=== PATIENT | female | born 1975 | race Caucasian/White ===

== ENCOUNTER 2018-06-13 11:52 | Emergency (ER) | payer BC ==
--- OUTSIDE RECORDS SUMMARY | 2018-06-13 14:07 | XMS REPORT | Continuity of Care Document ---
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 Payers Type Date Identification Numbers Payment Provider Subscriber Policy Number: [id number] [place] Plan Claims Shira Rankin PayID: [id number] [address] [place] [address] Advance Directives Description No Information Available Problems Date Description Provider Status Onset: 10/05/2014 Allergic rhinitis Qamar Turcios MD Active Onset: 05/20/2015 Dermatographic urticaria Qamar Turcios MD Active Family History Date Family Member(s) Problem(s) Comments Father Diabetes Mellitus, II Mother Diabetes Mellitus, II Social History Type Date Description Comments Sex Unknown ETOH Use Denies alcohol use Tobacco Use Start: Unknown Patient has never smoked Smoking Status Reviewed: 11/27/17 Patient has never smoked Allergies, Adverse Reactions, Alerts Date Description Reaction Status Severity Comments 05/20/2015 sulfa Active 05/20/2015 Macrobid Active 05/20/2015 Macrodantin Active Medications Medication Date Status Form Strength Qnty SIG Indications Ordering Provider Azithromycin 06/12/ Active Tablets 250mg 6tabs 2 by mouth Elyn 2017 today, 1 by MD Tam mouth day 2 thru 5 Potassium 07/18/ Active Tablets ER 10Meq 180ta tab 1 by Elyn Chloride ER 2015 bs mouth twice MD Tam a day Magnesium / Active Capsules 780 1 by mouth Unknown 0000 twice a day Amoxicillin 04/15/ Hx Tablets 500mg 30tab 1 by mouth Qamar 2017 - s three times MD Tam 06/02/ a day 2018 Monistat 7 11/27/ Hx Cream 2% 15gm apply Elyn Simply Cure 2017 - vaginally MD Tam 03/31/ as directed 2017 Azithromycin 09/03/ Hx Tablets 500mg 6tabs Tab 1 PO Q Umeshyn 2018 - Day MD Tam 2017 Azithromycin 08/28/ Hx Tablets 500mg 1tabs Take one Yrn FRicci 2018 - pill today MD Jill 09/03/ and then 2017 complete course of treatment with 250mg pills already prescribed one a day starting Azithromycin 08/27/ Hx Tablets 250mg 6tabs 2 by mouth J01.90 Yrn F. 2018 - today, 1 by MD Jill 09/03/ mouth day 2 2017 thru 5 Amoxicillin 08/23/ Hx Capsules 500mg 30cap 1 by mouth Qamar 2017 - s three times MD Tam 08/28/ a day x 10 2017 days Silvadene 01/11/ Hx Cream 1% 20gm apply to Elyn 2016 - affected MD Tam 03/06/ area(s) 2016 once daily after cleaning Prednisone 11/05/ Hx Tablets 20mg 8tabs 2 by mouth J20.9 Yrn F. 2017 - every day MD Jill 2016 Azithromycin 11/05/ Hx Tablets 250mg 6tabs 2 by mouth J20.9 Qamar 2016 - today, 1 by MD Tam 03/06/ mouth day 2 2016 thru 5 Robitussin 11/05/ Hx Capsules 10-200mg 20cap 1 by mouth J20.9 Yrn F. Cough+Chest 2017 - s twice a day MD Jill Congestion DM 03/06/ as needed 2017 Proair HFA 11/05/ Hx Aerosol 108(90Bas 25.5g 2 puffs 4 x J20.9 Yrn F. 2017 - e) m daily prn MD Jill 03/06/ mcg/Act 2017 Zithromax Z-Ke 06/06/ Hx Tablets 250mg 6tabs take as Umsehyn 2016 - directed MD Tam 2015 Triamcinolone 11/28/ Hx Cream 0.025% 15gm Apply tid Elyn Acetonide 2015 - prn MD Tam 10/18/ Affected 2017 Areas Hydrocortisone 11/28/ Hx Cream 1% 15gm Apply tid Elyn Acetate 2015 - prn Rash MD Tam 2016 Amoxicillin 11/10/ Hx Capsules 500mg 30cap 1 by mouth Qamar 2014 - s three times MD Tam 05/20/ a day x 10 2014 days No Active 10/05/ Hx Elyn Medications 2014 - MD Tam 2014 Zyrtec Allergy / Hx Capsules 10mg 30cap 1 by mouth Elyn 0000 - s every day MD Tam 03/06/ as needed 2017 Magnesium / Hx Tablets 250mg 1 by mouth Unknown 0000 - twice a day 2017 Immunizations Description No Information Available Vital Signs Date Vital Result Comment 06/12/2018 10:37am BP Systolic 136 mmHg BP Diastolic 88 mmHg Heart Rate 81 /min Body Temperature 97.9 F Height 59 inches 4'11" Weight 151.00 lb BMI (Body Mass Index) 30.5 kg/m2 O2 % BldC Oximetry 97 % 06/02/2018 3:32pm BP Systolic 120 mmHg BP Diastolic 70 mmHg Heart Rate 84 /min Respiratory Rate 18 /min Height 59 inches 4'11" Weight 151.00 lb BMI (Body Mass Index) 30.5 kg/m2 O2 % BldC Oximetry 97 % 04/15/2018 4:00pm BP Systolic 118 mmHg BP Diastolic 70 mmHg Body Temperature 97.9 F Height 59 inches 4'11" 03/31/2018 2:44pm BP Systolic 126 mmHg BP Diastolic 80 mmHg Height 59 inches 4'11" Weight 150.00 lb BMI (Body Mass Index) 30.3 kg/m2 03/03/2018 12:57pm BP Systolic 118 mmHg BP Diastolic 80 mmHg Heart Rate 74 /min Respiratory Rate 18 /min Height 59 inches 4'11" Weight 152.00 lb BMI (Body Mass Index) 30.7 kg/m2 O2 % BldC Oximetry 98 % 11/27/2017 2:33pm BP Systolic 144 mmHg BP Diastolic 96 mmHg Height 59 inches 4'11" Weight 151.00 lb BMI (Body Mass Index) 30.5 kg/m2 09/03/2017 11:53am BP Systolic 120 mmHg BP Diastolic 60 mmHg Heart Rate 76 /min Body Temperature 98.2 F O2 % BldC Oximetry 97 % 08/27/2017 3:11pm BP Systolic 122 mmHg BP Diastolic 80 mmHg Heart Rate 92 /min Body Temperature 497965.0 F Respiratory Rate 80 /min 08/23/2017 2:35pm BP Systolic 120 mmHg BP Diastolic 68 mmHg Height 59 inches 4'11" Weight 150.00 lb BMI (Body Mass Index) 30.3 kg/m2 07/24/2017 1:07pm BP Systolic 130 mmHg BP Diastolic 76 mmHg Height 59 inches 4'11" Weight 150.00 lb BMI (Body Mass Index) 30.3 kg/m2 05/16/2017 3:59pm BP Systolic 112 mmHg BP Diastolic 78 mmHg 05/02/2017 12:20pm BP Systolic 132 mmHg BP Diastolic 78 mmHg Weight 149.00 lb 03/06/2017 12:40pm BP Systolic 118 mmHg BP Diastolic 76 mmHg Height 60 inches 5'0" Weight 150.00 lb BMI (Body Mass Index) 29.3 kg/m2 11/14/2016 12:47pm BP Systolic 110 mmHg BP Diastolic 66 mmHg Body Temperature 97.0 F 11/05/2016 11:07am BP Systolic 122 mmHg BP Diastolic 60 mmHg Body Temperature 99.0 F 10/18/2016 12:44pm BP Systolic 132 mmHg BP Diastolic 70 mmHg Height 59.5 inches 4'11.50" Weight 142.00 lb BMI (Body Mass Index) 28.2 kg/m2 07/18/2016 7:25pm BP Systolic 110 mmHg BP Diastolic 80 mmHg 06/06/2016 8:56am BP Systolic 110 mmHg BP Diastolic 70 mmHg 04/02/2016 12:26pm BP Systolic 104 mmHg BP Diastolic 60 mmHg Height 59.5 inches 4'11.50" Weight 134.00 lb BMI (Body Mass Index) 26.6 kg/m2 11/29/2015 8:38am BP Systolic 120 mmHg BP Diastolic 72 mmHg Height 59.5 inches 4'11.50" Weight 134.00 lb BMI (Body Mass Index) 26.6 kg/m2 09/06/2015 9:01am BP Systolic 140 mmHg BP Diastolic 80 mmHg Body Temperature 97.8 F Height 59.5 inches 4'11.50" Weight 129.00 lb BMI (Body Mass Index) 25.6 kg/m2 05/20/2015 10:23am BP Systolic 124 mmHg BP Diastolic 78 mmHg Height 59.5 inches 4'11.50" Weight 129.00 lb BMI (Body Mass Index) 25.6 kg/m2 11/10/2014 8:28pm BP Systolic 112 mmHg BP Diastolic 70 mmHg Height 59.5 inches 4'11.50" Weight 128.00 lb BMI (Body Mass Index) 25.4 kg/m2 10/05/2014 1:40pm BP Systolic 118 mmHg BP Diastolic 66 mmHg Height 59.5 inches 4'11.50" Weight 126.00 lb BMI (Body Mass Index) 25.0 kg/m2 Results Test Date Facility Test Result H/L Range Note CBS 04/11/2018 [facility] White Blood 6.2 K/uL 3.1 -10.7 W/Automated [address] Count Diff [place], [place] [id number] [phone] Red Blood Count 5.13 M/uL 3.90-5.40 Hemoglobin 14.9 gm/dL 11.6-15.8 Hematocrit 46.3 % High 36.0-46.1 Mean Cell Volume 90.3 fl 80.9-99.0 Mean Corpuscular HGB 29.0 pg 25.9-32.7 Mean Corpuscular HGB Conc 32.2 g/dL 30.8-34.3 Platelet Count 197 K/uL 155-360 Red Cell Distri Width SD 43.6 fl 3-47 Red Cell Distri Width %CV 13.6 % 11.7-14.4 Neut% 58.4 % 40.4-72.8 Lymph % 33.4 % 20.0-42.0 Letcher % 6.8 % 4.3-13.2 Eo% 1.1 % 0.0-6.6 Bas% 0.3 % 0.0-1.1 Neut# 3.60 K/uL 1.8-7.0 Lymph # 2.06 K/uL 1.0-4.0 Letcher # 0.42 K/uL 0.3-0.9 Eos # 0.07 K/uL 0.0-0.5 Baso # 0.02 K/uL 0.0-0.1 Laboratory test finding 04/11/2018 [facility] Slide Review . [address] [place], [place] [id number] [phone] Sedimentation Rate 18 mm/hr 0-20 2 Laboratory 04/11/2018 [facility] Anti-Nuclear Negative Negative 3, 4 test finding [address] Antibodies AU/[place] [address] Direct [phone] Liver Function 04/11/2018 [facility] Total Protein 7.9 g/dL 6.4-8.[address] [place], [place] [id number] [phone] Albumin 3.8 g/dL 3.4-5.0 Globulin 4.1 g/dL 1.9-4.3 Alb/Glob 0.9 ratio Bilirubin,Total 0.5 mg/dL 0.2-1.0 Bilirubin,Direct < 0.1 mg/dL 0.0-0.2 Bilirubin,Indirect 0.4 mg/dL 0.0-0.9 Sgot/Ast 22 U/L 15-37 SGPT/Alt 36 U/L 12-78 Alkaline Phosphatase 89 U/L 45-117 Comprehensive 04/11/2018 [facility] Glucose 103 mg/ dL 74-106 Metabolic Panel [address] [place] [address] [phone] BUN 15 mg/dL 7-18 Creatinine 0.9 mg/dL 0.6-1.3 Glom Filtration Rate, Estimate >60 mL/min >60 If >60 mL/min >60 5 BUN/Creat 16.6 ratio Sodium 139 mmol/L 136-145 Potassium 4.0 mmol/L 3.5-5.1 Chloride 103 mmol/L 98-107 Carbon Dioxide 27 mmol/L 21-32 Anion Gap 9 mEq/L 8-16 Calcium 9.2 mg/dL 8.5-10.1 Laboratory test 04/11/2018 [facility] Magnesium 2.1 mg/dL 1.8-2.[address] [place] [address] [phone] LDL Cholesterol 04/11/2018 [facility] Cholesterol 183 mg/dL <200 [address] [place] [address] [phone] Triglycerides 141 mg/dL <150 7 HDL Cholesterol 39 mg/dL Low >40 8 LDL-Cholesterol 116 mg/dL < 100 9 Glycohemoglobin 04/11/2018 [facility] Glycohemoglobin 5.9 % 4.2-6.3 10, A1c [address] (A1c) 11 [place] [address] [phone] eAG 123 mg/dL Comprehensive 11/21/2017 [facility] Glucose 106 mg/ dL 74-106 Metabolic Panel [address] [place] [address] [phone] BUN 14 mg/dL 7-18 Creatinine 0.7 mg/dL 0.6-1.3 Glom Filtration Rate, Estimate >60 mL/min >60 If >60 mL/min >60 12 BUN/Creat 20.0 ratio Sodium 139 mmol/L 136-145 Potassium 3.7 mmol/L 3.5-5.1 Chloride 106 mmol/L 98-107 Carbon Dioxide 29 mmol/L 21-32 Anion Gap 4 mEq/L Low 8-16 Calcium 9.1 mg/dL 8.5-10.1 Total Protein 7.9 g/dL 6.4-8.2 Albumin 3.7 g/dL 3.4-5.0 Globulin 4.2 g/dL 1.9-4.3 Alb/Glob 0.9 ratio Bilirubin,Total 0.4 mg/dL 0.2-1.0 Sgot/Ast 22 U/L 15-37 SGPT/Alt 51 U/L 12-78 Alkaline Phosphatase 88 U/L 45-117 Laboratory test finding 11/21/2017 [facility] FSH 94.6 mIU/mL [address] [place], [place] [id number] [phone] Prolactin 14.0 ng/mL 14 Laboratory test 04/05/2017 [facility] Vitamin B12 661 pg/mL 193-986 [address] [place], [place] [id number] [phone] Rheumatoid Factor Screen < 10.0 IU/mL 0.0-15.0 Magnesium 2.1 mg/dL 1.8-2.4 Laboratory 04/05/2017 [facility] Anti-Nuclear Negative Negative 16 test finding [address] Antibodies AU/[place] [address] Direct [phone] Laboratory 04/05/2017 [facility] Cortisol,Am 13.2 g /dL 6.2-19.4 17 test finding [address] [place], [place] [id number] [phone] CBC W/ Diff & 04/05/2017 [facility] White Blood 6.4 K /uL 3.1-10.[address] [place] [address] [phone] Red Blood Count 5.29 M/uL 3.90-5.40 Hemoglobin 15.7 gm/dL 11.6-15.8 Hematocrit 46.5 % High 36.0-46.1 Mean Cell Volume 87.9 fl 80.9-99.0 Mean Corpuscular HGB 29.7 pg 25.9-32.7 Mean Corpuscular HGB Conc 33.8 g/dL 30.8-34.3 Platelet Count 174 K/uL 150-400 Red Cell Distri Width SD 43.2 fl 3-47 Red Cell Distri Width %CV 13.6 % 11.7-14.4 Mean Platelet Volume 11.5 fL 8.9-12.4 Neut% 57.6 % 40.4-72.8 Lymph % 35.0 % 20.0-42.0 Letcher % 6.3 % 4.3-13.2 Eo% 0.8 % 0.0-6.6 Bas% 0.3 % 0.0-1.1 Neut# 3.69 K/uL 1.8-7.0 Lymph # 2.24 K/uL 1.0-4.0 Letcher # 0.40 K/uL 0.3-0.9 Eos # 0.05 K/uL 0.0-0.5 Baso # 0.02 K/uL 0.0-0.1 Laboratory test 04/05/2017 [facility] Sedimentation Rate 1 mm/hr 0-20 [address] [place], [place] [id number] [phone] Basic Metabolic 04/05/2017 [facility] Glucose 98 mg/ dL 74-[address] [place], [place] [id number] [phone] BUN 15 mg/dL 7-18 Creatinine 0.7 mg/dL 0.6-1.3 Glom Filtration Rate, Estimate >60 mL/min >60 If >60 mL/min >60 19 BUN/Creat 21.4 ratio Sodium 138 mmol/L 136-145 Potassium 3.7 mmol/L 3.5-5.1 Chloride 104 mmol/L 98-107 Carbon Dioxide 25 mmol/L 21-32 Anion Gap 9 mEq/L 8-16 Calcium 9.2 mg/dL 8.5-10.1 LDL Cholesterol 04/05/2017 [facility] Cholesterol 222 mg/dL High <200 [address] [place] [address] [phone] Triglycerides 175 mg/dL High <150 21 HDL Cholesterol 44 mg/dL >40 22 LDL-Cholesterol 143 mg/dL < 100 23 TSH+Free T4 04/05/2017 [facility] Thyroid Stim 0.85 uIU/mL 0.30-4.20 ([place] & [address] Hormone [facility]) [place], [place] [id number] [phone] Free T4 0.99 ng/dL 0.76-1.46 Liver Function 04/05/2017 [facility] Total Protein 8.0 g/dL 6.4-8.[address] [place] [address] [phone] Albumin 3.8 g/dL 3.4-5.0 Globulin 4.2 g/dL 1.9-4.3 Alb/Glob 0.9 ratio Bilirubin,Total 0.5 mg/dL 0.2-1.0 Bilirubin,Direct 0.1 mg/dL 0.0-0.2 Bilirubin,Indirect 0.4 mg/dL 0.0-0.9 Sgot/Ast 45 U/L High 15-37 SGPT/Alt 92 U/L High 12-78 Alkaline Phosphatase 96 U/L 45-117 Basic Metabolic 10/11/2016 [facility] Glucose 95 mg/ dL 74-106 [address] [place] [address] [phone] BUN 15 mg/dL 7-18 Creatinine 0.7 mg/dL 0.6-1.3 Glom Filtration Rate, Estimate >60 mL/min >60 If >60 mL/min >60 25 BUN/Creat 21.4 ratio Sodium 140 mmol/L 136-145 Potassium 3.9 mmol/L 3.5-5.1 Chloride 105 mmol/L 98-107 Carbon Dioxide 24 mmol/L 21-32 Anion Gap 11 mEq/L 8-16 Calcium 9.0 mg/dL 8.5-10.1 Laboratory test 10/11/2016 [facility] Magnesium 2.1 mg/dL 1.8-2.[address] [place] [address] [phone] Basic Metabolic 07/03/2016 [facility] Glucose 99 mg/ dL 74-106 [address] [place] [address] [phone] BUN 18 mg/dL 7-18 Creatinine 0.9 mg/dL 0.6-1.3 Glom Filtration Rate, Estimate >60 mL/min >60 If >60 mL/min >60 27 BUN/Creat 20.0 ratio Sodium 139 mmol/L 136-145 Potassium 3.5 mmol/L 3.5-5.1 Chloride 104 mmol/L 98-107 Carbon Dioxide 28 mmol/L 21-32 Anion Gap 7 mEq/L Low 8-16 Calcium 8.7 mg/dL 8.5-10.1 Laboratory test 07/03/2016 [facility] Magnesium 2.1 mg/dL 1.8-2.[address] [place] [address] [phone] CBS W/Automated 07/03/2016 [facility] White Blood 5.8 K/uL 3.1-10.[address] [place] [address] [phone] Red Blood Count 5.01 M/uL 3.90-5.40 Hemoglobin 14.8 gm/dL 11.6-15.8 Hematocrit 44.1 % 36.0-46.1 Mean Cell Volume 88.0 fl 80.9-99.0 Mean Corpuscular HGB 29.5 pg 25.9-32.7 Mean Corpuscular HGB Conc 33.6 g/dL 30.8-34.3 Platelet Count 181 K/uL 155-360 Red Cell Distri Width SD 39.8 fl 3-47 Red Cell Distri Width %CV 12.7 % 11.7-14.4 Mean Platelet Volume 10.8 fL 8.9-12.4 Neut% 54.0 % 40.4-72.8 Lymph % 35.8 % 17.0-46.1 Letcher % 8.5 % 4.3-13.2 Eo% 1.4 % 0.0-6.6 Bas% 0.3 % 0.0-1.1 Neut# 3.12 K/uL 1.8-7.0 Lymph # 2.07 K/uL 1.8-7.0 Letcher # 0.49 K/uL 0.3-0.9 Eos # 0.08 K/uL 0.0-0.5 Baso # 0.02 K/uL 0.0-0.1 Comprehensive Metabolic 07/03/2016 [facility] Glucose 93 mg/dL 74-[address] [place] [address] [phone] BUN 18 mg/dL 7-18 Creatinine 0.9 mg/dL 0.6-1.3 Glom Filtration Rate, Estimate >60 mL/min >60 If >60 mL/min >60 28 BUN/Creat 20.0 ratio Sodium 138 mmol/L 136-145 Potassium 3.4 mmol/L Low 3.5-5.1 Chloride 103 mmol/L 98-107 Carbon Dioxide 28 mmol/L 21-32 Anion Gap 7 mEq/L Low 8-16 Calcium 8.5 mg/dL 8.5-10.1 Total Protein 7.5 g/dL 6.4-8.2 Albumin 3.7 g/dL 3.4-5.0 Globulin 3.8 g/dL 1.9-4.3 Alb/Glob 1.0 ratio Bilirubin,Total 0.6 mg/dL 0.2-1.0 Sgot/Ast 31 U/L 15-37 SGPT/Alt 62 U/L 12-78 Alkaline Phosphatase 84 U/L 45-117 LDL Cholesterol 07/03/2016 [facility] Cholesterol 197 mg/dL <200 [address] [place] [address] [phone] Triglycerides 72 mg/dL <150 30 HDL Cholesterol 51 mg/dL >40 31 LDL-Cholesterol 132 mg/dL < 100 32 Laboratory test 07/03/2016 [facility] Thyroid Stim 0.84 uIU/mL 0.30-4.[address] [place] [place] [address] [phone] Free T4 1.15 ng/dL 0.76-1.46 Laboratory test 07/03/2016 [facility] Vitamin 40.0 30.0-100.0 [address] D,25-Hydroxy ng/[place] [address] [phone] Basic Metabolic 03/16/2016 [facility] Glucose 95 mg/ dL 74-[address] [place] [address] [phone] BUN 11 mg/dL 7-18 Creatinine 0.9 mg/dL 0.6-1.3 Glom Filtration Rate, Estimate >60 mL/min >60 If >60 mL/min >60 34 BUN/Creat 12.2 ratio Sodium 139 mmol/L 136-145 Potassium 3.7 mmol/L 3.5-5.1 Chloride 107 mmol/L 98-107 Carbon Dioxide 25 mmol/L 21-32 Anion Gap 7 mEq/L Low 8-16 Calcium 8.8 mg/dL 8.5-10.1 Laboratory test 03/16/2016 [facility] Magnesium 1.9 mg/dL 1.8-2.4 [address] [place] [address] [phone] Comprehensive 11/21/2015 [facility] Glucose 93 mg/dL 74-106 Metabolic Panel [address] [place] [address] [phone] BUN 15 mg/dL 7-18 Creatinine 0.8 mg/dL 0.6-1.3 Glom Filtration Rate, Estimate >60 mL/min >60 If >60 mL/min >60 36 BUN/Creat 18.7 ratio Sodium 138 mmol/L 136-145 Potassium 3.3 mmol/L Low 3.5-5.1 Chloride 104 mmol/L 98-107 Carbon Dioxide 28 mmol/L 21-32 Anion Gap 6 mEq/L Low 8-16 Calcium 8.6 mg/dL 8.5-10.1 Total Protein 7.8 g/dL 6.4-8.2 Albumin 3.7 g/dL 3.4-5.0 Globulin 4.1 g/dL 1.9-4.3 Alb/Glob 0.9 ratio Bilirubin,Total 0.5 mg/dL 0.2-1.0 Sgot/Ast 28 U/L 15-37 SGPT/Alt 64 U/L 12-78 Alkaline Phosphatase 77 U/L 45-117 CBC W/Automated 11/21/2015 [facility] White Blood 5.4 K/uL 3.1-10.[address] [place] [address] [phone] Red Blood Count 4.71 M/uL 3.90-5.40 Hemoglobin 14.0 gm/dL 11.6-15.8 Hematocrit 42.1 % 36.0-46.1 Mean Cell Volume 89.4 fl 80.9-99.0 Mean Corpuscular HGB 29.7 pg 25.9-32.7 Mean Corpuscular HGB Conc 33.3 g/dL 30.8-34.3 Platelet Count 183 K/uL 155-360 Red Cell Distri Width SD 40.3 fl 3-47 Red Cell Distri Width %CV 12.7 % 11.7-14.4 Mean Platelet Volume 11.3 fL 8.9-12.4 Neut% 55.2 % 40.4-72.8 Lymph % 36.6 % 17.0-46.1 Letcher % 6.9 % 4.3-13.2 Eo% 0.9 % 0.0-6.6 Bas% 0.4 % 0.0-1.1 Neut# 2.97 K/uL 1.8-7.0 Lymph # 1.97 K/uL 1.8-7.0 Letcher # 0.37 K/uL 0.3-0.9 Eos # 0.05 K/uL 0.0-0.5 Baso # 0.02 K/uL 0.0-0.1 LDL Cholesterol 11/21/2015 [facility] Cholesterol 184 mg/dL <200 [address] [place] [address] [phone] Triglycerides 86 mg/dL <150 38 HDL Cholesterol 47 mg/dL >40 39 LDL-Cholesterol 120 mg/dL < 100 40 Laboratory test 11/21/2015 [facility] Vitamin 35.2 30.0-100.0 [address] D,25-Hydroxy ng/[place] [address] [phone] Laboratory test 11/21/2015 [facility] Thyroid Stim 0.78 0.36-3.[address] Hormone uIU/[place] [address] [phone] Free T4 1.00 ng/dL 0.76-1.46 Laboratory test 04/25/2015 [facility] Urine Screen See Note [address] [place] [address] [phone] Urinalysis With 04/25/2015 [facility] Urine Color YELLOW Yellow Microscopic [address] [place] [address] [phone] Urine Clarity CLEAR Clear Urine Glucose - Dipstick NEGATIVE mg/dL Negative Urine Bilirubin - Dipstick NEGATIVE Negative Urine Ketone NEGATIVE mg/dL Negative Urine Specific [place] 1.010 1.010-1.030 Urine Blood LARGE High Negative Urine PH 7.0 6.5-7.5 Urine Protein - Dipstick TRACE mg/dL Negative Urine Urobilinogen - Dipstick 0.2 E.U./dL 0.2-1.0 Urine Nitrite - Dipstick NEGATIVE Negative Urine Leuk Esterase SMALL High Negative Urine RBC 30-50 rbc/hpf High 0-2 Urine WBC 10-20 wbc/hpf High 0-7 Urine Epithelial Cells VERY FEW NONESEEN/lpf Urine Bacteria FEW NONESEEN Laboratory test 04/25/2015 [facility] Urine HCG NEGATIVE Negative [address] (Qualitative) [place] [address] [phone] Culture If Indicated Comment See Note 44 Urine Culture See Note 45 CMP W/O Egfr 10/15/2014 [facility] Sodium 136 mmol/L [phone] [place] [address] [phone] Potassium 3.9 mmol/L 3.5-5.0 Chloride 102 mmol/L 101-111 Co2 Carbon Dioxide 27 mmol/L 22-32 Anion Gap 7 mmol/L 2-11 Glucose 93 mg/dL 70-100 Blood Urea Nitrogen 11 mg/dL 6-24 Creatinine 0.79 mg/dL 0.51-0.95 BUN/Creatinine Ratio 13.9 8-20 Calcium 9.2 mg/dL 8.6-10.3 Total Protein 7.2 g/dL 6.4-8.9 Albumin 4.4 g/dL 3.2-5.2 Globulin 2.8 g/dL 2-4 Albumin/Globulin Ratio 1.6 1-3 Total Bilirubin 0.60 mg/dL 0.2-1.0 Alkaline Phosphatase 55 U/L 34-104 Alt 16 U/L 7-52 Ast 14 U/L 13-39 Egfr Non- 80.2 >60 Egfr 103.1 >60 46 CBC W/ Diff & 10/15/2014 [facility] White Blood 5.6 10^3/uL 4.8-10.[address] [place] [address] [phone] Red Blood Count 4.78 10^6/uL 4.0-5.4 Hemoglobin 14.7 g/dL 12.0-16.0 Hematocrit 44 % 35-47 Mean Corpuscular Volume 91 fL 80-97 Mean Corpuscular Hemoglobin 31 pg 27-31 Mean Corpuscular HGB Conc 34 g/dL 31-36 Red Cell Distribution Width 13 % 10.5-15 Platelet Count (SEE NOTE) 10^3/uL 150-450 47 Abs Neutrophils 3.3 10^3/uL 1.5-7.7 Abs Lymphocytes 1.9 10^3/uL 1.0-4.8 Abs Monocytes 0.3 10^3/uL 0-0.8 Abs Eosinophils 0 10^3/uL 0-0.6 Abs Basophils 0 10^3/uL 0-0.2 Abs Nucleated RBC 0 10^3/uL Granulocyte % 59.3 % 38-83 Lymphocyte % 33.6 % 25-47 Monocyte % 5.6 % 1-9 Eosinophil % 0.8 % 0-6 Basophil % 0.7 % 0-2 Nucleated Red Blood Cells % 0.1 Lipid Panel 10/15/2014 [facility] Triglycerides 130 mg/dL [address] [place] [address] [phone] Cholesterol 157 mg/dL 49 HDL Cholesterol 32.9 mg/dL 50 LDL Cholesterol 98 mg/dL 51 Hepatic 10/15/2014 [facility] Direct 0.10 mg/dL 0.03-0.18 Function Panel [address] [place] [place] [address] [phone] Indirect Bilirubin 0.5 mg/dL 0.3-1.0 Laboratory test 10/15/2014 [facility] Creatine 39 U/L 10-[address] [place] [address] [phone] [facility] 10/15/2014 [facility] 25-Hydroxy <4.0 25-Hydroxy D [address] Vitamin D2 ng/mL (D2,D3) LC/[place] [address] [phone] 25-Hydroxy Vitamin D3 30 ng/mL 25-Hydroxy Vitamin D Total 30 ng/mL 52 Laboratory test 10/15/2014 [facility] TSH (Thyroid 0.79 0.34- 5.[address] Stimulating IU/[place] [address] Horm) [phone] Thyroxine Free 10/15/2014 [facility] Free T4 0.98 0.61-1.[address] ng/[place] [address] [phone] Laboratory test 10/15/2014 [facility] Vitamin B12 767 pg/mL [phone] [place], [place] [id number] [phone] 1 Instrument flagged sample for slide review. Less than 10% Bands seen, no other immature WBC's seen. RBC morphology essentially normal. Platelet estimate=NORMAL 2 Method: Sediplast Modified Westergren 3 E87.6 E78.5 R60.9 R53.83 4 Performed at: RN - [facility] [address] [id number] Concreting Supervisor: Sammie Carpenter MD, Phone: [phone] Note: Persistent reduction for 3 months or more in an eGFR <60 mL/min/1.73 m2 defines CKD. Patients with eGFR values >/=60 mL/min/1.73 m2 may also have CKD if evidence of persistent proteinuria is present. The original MDRD equation for estimated GFR is not valid for patients less than 18 years of age. Additional information may be found at www.kdoqi.org. 6 Reference Guidelines*: Desirable: ........... < 200 mg/dL Borderline High: ..... 200-239 mg/dL High: ................ >=240 mg/dL * The National Cholesterol Education Program (NCEP) 7 Reference Guidelines*: Normal: ............. < 150 mg/dL Borderline High: .... 150-199 mg/dL High: ............... 200-499 mg/dL Very High: .......... > 500 mg/dL * Source: National Cholesterol Education Program (NCEP) 8 Reference Guidelines*: Low HDL: ..... < 40 mg/dL Normal: ..... 40-60 mg/dL Desirable: ... > 60 mg/dL *The National Cholesterol Education Program(NCEP) 9 Reference Guidelines*: Optimal:........... <100 mg/dL Near Optimal....... 100-129 mg/dL Borderline High.... 130-159 mg/dL High............... 160-189 mg/dL Very High.......... >=190 mg/dL * Source: National Cholesterol Education Program (NCEP) 10 E87.6 11 Elevated levels of HbA1c suggest the need for more aggressive treatment of glycemia. The [place] [employer] recommends that a primary goal of therapy should be a HbA1c of <7% and that physicians should re-evaluate the treatment regimen in patients with HbA1c values consistently >8%. 12 Note: Persistent reduction for 3 months or more in an eGFR <60 mL/min/1.73 m2 defines CKD. Patients with eGFR values >/=60 mL/min/1.73 m2 may also have CKD if evidence of persistent proteinuria is present. The original MDRD equation for estimated GFR is not valid for patients less than 18 years of age. Additional information may be found at www.[email or web address]. 13 NORMALLY MENSTRUATING FEMALES: Follicular Phase:............... 2.3-12.6 mIU/mL Mid-Cycle Peak:................. 5.2-17.5 mIU/mL Luteal Phase:................... 1.7-9.5 mIU/mL POSTMENOPAUSAL FEMALES: On menopausal hormone therapy (MHT)... 5.9-72.8 mIU/mL Not on MHT ........................... 12.7-132.2 mIU/mL 14 Non- ..... 2.2-30.3 ng/mL ......... 8.1-347.6 ng/mL Post-Menopausal .. 0.7-31.5 ng/mL 15 R94.5 E78.2 J20.9 R53.83 E87.6 E83.42 16 Performed at: RN - [facility] [address] [id number] Concreting Supervisor: Sammie Carpenter MD, Phone: [phone] 17 Performed at: RN - [facility] [address] [id number] Concreting Supervisor: Sammie Carpenter MD, Phone: [phone] 18 Method: Sediplast Modified Westergren 19 Note: Persistent reduction for 3 months or more in an eGFR <60 mL/min/1.73 m2 defines CKD. Patients with eGFR values >/=60 mL/min/1.73 m2 may also have CKD if evidence of persistent proteinuria is present. The original MDRD equation for estimated GFR is not valid for patients less than 18 years of age. Additional information may be found at www.[email or web address]. 20 Reference Guidelines*: Desirable: ........... < 200 mg/dL Borderline High: ..... 200-239 mg/dL High: ................ >=240 mg/dL * The National Cholesterol Education Program (NCEP) 21 Reference Guidelines*: Normal: ............. < 150 mg/dL Borderline High: .... 150-199 mg/dL High: ............... 200-499 mg/dL Very High: .......... > 500 mg/dL * Source: National Cholesterol Education Program (NCEP) 22 Reference Guidelines*: Low HDL: ..... < 40 mg/dL Normal: ..... 40-60 mg/dL Desirable: ... > 60 mg/dL *The National Cholesterol Education Program(NCEP) 23 Reference Guidelines*: Optimal:........... <100 mg/dL Near Optimal....... 100-129 mg/dL Borderline High.... 130-159 mg/dL High............... 160-189 mg/dL Very High.......... >=190 mg/dL * Source: National Cholesterol Education Program (NCEP) 24 E87.6,E83.42 25 Note: Persistent reduction for 3 months or more in an eGFR <60 mL/min/1.73 m2 defines CKD. Patients with eGFR values >/=60 mL/min/1.73 m2 may also have CKD if evidence of persistent proteinuria is present. The original MDRD equation for estimated GFR is not valid for patients less than 18 years of age. Additional information may be found at www.[email or web address]. 26 E87.6,E83.42,R94.5,E78.5,J02.9,E03.9,M81.8 27 Note: Persistent reduction for 3 months or more in an eGFR <60 mL/min/1.73 m2 defines CKD. Patients with eGFR values >/=60 mL/min/1.73 m2 may also have CKD if evidence of persistent proteinuria is present. The original MDRD equation for estimated GFR is not valid for patients less than 18 years of age. Additional information may be found at www.[email or web address]. 28 Note: Persistent reduction for 3 months or more in an eGFR <60 mL/min/1.73 m2 defines CKD. Patients with eGFR values >/=60 mL/min/1.73 m2 may also have CKD if evidence of persistent proteinuria is present. The original MDRD equation for estimated GFR is not valid for patients less than 18 years of age. Additional information may be found at www.[email or web address]. 29 Reference Guidelines*: Desirable: ........... < 200 mg/dL Borderline High: ..... 200-239 mg/dL High: ................ >=240 mg/dL * The National Cholesterol Education Program (NCEP) 30 Reference Guidelines*: Normal: ............. < 150 mg/dL Borderline High: .... 150-199 mg/dL High: ............... 200-499 mg/dL Very High: .......... > 500 mg/dL * Source: National Cholesterol Education Program (NCEP) 31 Reference Guidelines*: Low HDL: ..... < 40 mg/dL Normal: ..... 40-60 mg/dL Desirable: ... > 60 mg/dL *The National Cholesterol Education Program(NCEP) 32 Reference Guidelines*: Optimal:........... <100 mg/dL Near Optimal....... 100-129 mg/dL Borderline High.... 130-159 mg/dL High............... 160-189 mg/dL Very High.......... >=190 mg/dL * Source: National Cholesterol Education Program (NCEP) 33 Vitamin D deficiency has been defined by the Fisher of Medicine and an Endocrine Society practice guideline as a level of serum 25-OH vitamin D less than 20 ng/mL (1,2). The Endocrine Society went on to further define vitamin D insufficiency as a level between 21 and 29 ng/mL (2). 1. IOM (Fisher of Medicine). 2010. Dietary reference intakes for calcium and D. [place]: The National Academies Press. 2. Jay MF, [place], Judith SANCHEZ, et al. Evaluation, treatment, and prevention of vitamin D deficiency: an Endocrine Society clinical practice guideline. JCEM. 2010; 96(7):1911-30. Performed at: RN - [facility] [address], [place], [place] [id number] Concreting Supervisor: Sammie Carpenter MD, Phone: [phone] 34 Note: Persistent reduction for 3 months or more in an eGFR <60 mL/min/1.73 m2 defines CKD. Patients with eGFR values >/=60 mL/min/1.73 m2 may also have CKD if evidence of persistent proteinuria is present. The original MDRD equation for estimated GFR is not valid for patients less than 18 years of age. Additional information may be found at www.[email or web address]. 35 FAX TO LUBA HIGHTOWER AT [phone] 36 Note: Persistent reduction for 3 months or more in an eGFR <60 mL/min/1.73 m2 defines CKD. Patients with eGFR values >/=60 mL/min/1.73 m2 may also have CKD if evidence of persistent proteinuria is present. The original MDRD equation for estimated GFR is not valid for patients less than 18 years of age. Additional information may be found at www.[email or web address]. 37 Reference Guidelines*: Desirable: ........... < 200 mg/dL Borderline High: ..... 200-239 mg/dL High: ................ >=240 mg/dL * The National Cholesterol Education Program (NCEP) 38 Reference Guidelines*: Normal: ............. < 150 mg/dL Borderline High: .... 150-199 mg/dL High: ............... 200-499 mg/dL Very High: .......... > 500 mg/dL * Source: National Cholesterol Education Program (NCEP) 39 Reference Guidelines*: Low HDL: ..... < 40 mg/dL Normal: ..... 40-60 mg/dL Desirable: ... > 60 mg/dL *The National Cholesterol Education Program(NCEP) 40 Reference Guidelines*: Optimal:........... <100 mg/dL Near Optimal....... 100-129 mg/dL Borderline High.... 130-159 mg/dL High............... 160-189 mg/dL Very High.......... >=190 mg/dL * Source: National Cholesterol Education Program (NCEP) 41 Vitamin D deficiency has been defined by the Fisher of Medicine and an Endocrine Society practice guideline as a level of serum 25-OH vitamin D less than 20 ng/mL (1,2). The Endocrine Society went on to further define vitamin D insufficiency as a level between 21 and 29 ng/mL (2). 1. IOM (Fisher of Medicine). 2010. Dietary reference intakes for calcium and D. [place]: The National Academies Press. 2. Jay MF, [place], Judith SANCHEZ, et al. Evaluation, treatment, and prevention of vitamin D deficiency: an Endocrine Society clinical practice guideline. JCEM. 2010; 96(7):1911-30. Performed at: RN - [facility] [address] [id number] Concreting Supervisor: Sammie Carpenter MD, Phone: [phone] 42 04/25/15 LAB.[email or web address] De[facility] FIRST MORNING SPECIMENS GENERALLY CONTAIN THE HIGHEST CONCENTRATION OF HCG AND ARE RECOMMENDED FOR EARLY DETECTION OF . 44 CULTURE TO FOLLOW 45 Organism 1 ! ESCHERICHIA COLI Quantity ! 50,000 - 100,000 CFU/mL Organism 2 ! URETHRAL IMAN Quantity ! 10,000 - 50,000 CFU/mL ESCHERICHIA COLI Target Route Dose M.I.C. RX AB COST ------ ----- -------- ------ -- ------ NITROFURANTOIN <=16 S TRIMETHOPRIM/SULFAMETHOXAZOLE <=20 S AMPICILLIN >=32 R CEFAZOLIN 8 S AMPICILLIN/SULBACTAM >=32 R CIPROFLOXACIN <=0.25 S PIPERACILLIN/TAZOBACTAM 8 S CEFTAZIDIME <=1 S CEFTRIAXONE <=1 S CEFEPIME <=1 S LEVOFLOXACIN <=0.12 S IMIPENEM <=0.25 S GENTAMICIN <=1 S TOBRAMYCIN <=1 S 46 Because ethnic data is not always readily available, this report includes an eGFR for both -Americans and non- Americans. The National Kidney Disease Education Program (NKDEP) does not endorse the use of the MDRD equation for patients that are not between the ages of 18 and 70, are , have extremes of body size, muscle mass, or nutritional status, or are non- or non-. According to the National Kidney Foundation, irrespective of diagnosis, the stage of the disease is based on the level of kidney function: Stage Description GFR(mL/min/1.73 m(2)) 1 Kidney damage with normal or decreased GFR 90 2 Kidney damage with mild decrease in GFR 60-89 3 Moderate decrease in GFR 30-59 4 Severe decrease in GFR 15-29 5 Kidney failure <15 (or dialysis) 47 Platelets clumped. Unable to perform accurate count. 48 Desirable <150 Borderline high 150-199 High 200-499 Very High >500 49 Desirable <200 Borderline high 200-239 High >239 50 Low <40 Desirable: 40-60 High: >60 51 Desirable: <100 mg/dL Near Optimal: 100-129 mg/dL Borderline High: 130-159 mg/dL High: 160-189 mg/dL Very High: >189 mg/dL 52 REFERENCE VALUE 25-HYDROXY D TOTAL (D2+D3) Optimum levels in the healthy population are 20-50, patients with bone disease may benefit from higher levels within this range. Test Performed by: [place] [address] Ambulance Assistant: Benji Song II, M.D., Ph.D. 53 Normal Range 180 to 914 Indeterminate Range 145 to 180 Deficient Range <145 Procedures Date Code Description Status 03/03/2018 63750 Duplex Scan Extremity Veins Complete Bilateral Completed 06/20/2017 20547 EKG-Tracing & Report Completed 08/12/2013 [id number] Mammogram Completed Encounters Type Date Location Provider Dx Diagnosis Office Visit 06/12/2018 11:15a Main Office Qamar Turcios MD H66.91 Otitis media, unspecified, right ear M54.31 Sciatica, right side E87.6 Hypokalemia Office Visit 06/02/2018 3:30p Main Office Deonna Melchor, M54.31 Sciatica, right M.D. side S92.414A Nondisp fx of proximal phalanx of right great toe, init Office Visit 04/15/2018 4:00p Main Office Qamar Turcios MD J02.9 Acute pharyngitis, unspecified E87.6 Hypokalemia R10.11 Right upper quadrant pain E78.5 Hyperlipidemia, unspecified Office Visit 03/31/2018 2:30p Main Office Qamar Turcios MD E87.6 Hypokalemia R10.11 Right upper quadrant pain E83.42 Hypomagnesemia Office Visit 03/03/2018 1:00p Main Office Qamar Turcios MD E87.6 Hypokalemia E78.5 Hyperlipidemia, unspecified R60.9 Edema, unspecified Office Visit 11/27/2017 2:30p Main Office Qamar Turcios MD E78.5 Hyperlipidemia, unspecified E87.6 Hypokalemia Office Visit 09/03/2017 11:00a Main Office Qamar Turcios MD J20.9 Acute bronchitis, unspecified H66.91 Otitis media, unspecified, right ear Office Visit 08/27/2017 3:10p Main Office Yrn Melchor J01.90 Acute sinusitis, unspecified Office Visit 08/23/2017 2:15p Main Office Qamar Turcios MD J02.9 Acute pharyngitis, unspecified H66.92 Otitis media, unspecified, left ear Office Visit 07/24/2017 1:15p Main Office Qamra Turcios MD E78.5 Hyperlipidemia, unspecified M54.5 Low back pain E87.6 Hypokalemia R10.11 Right upper quadrant pain Office Visit 05/16/2017 3:45p Main Office Qamar Turcios MD M54.5 Low back pain E87.6 Hypokalemia R53.83 Other fatigue Office Visit 05/02/2017 11:45a Main Office Qamar Turcios MD M54.5 Low back pain Office Visit 03/06/2017 12:30p Main Office Qamar Turcios MD E87.6 Hypokalemia E83.42 Hypomagnesemia R53.83 Other fatigue M25.50 Pain in unspecified joint Office Visit 11/14/2016 12:45p Main Office Qamar Turcios MD J20.9 Acute bronchitis, unspecified J45.998 Other asthma E87.6 Hypokalemia E83.42 Hypomagnesemia R53.83 Other fatigue Office Visit 11/05/2016 10:50a Main Office Yrn Melchor J20.9 Acute bronchitis, unspecified J45.998 Other asthma Office Visit 10/18/2016 12:30p Main Office Qamar Turcios MD E87.6 Hypokalemia E83.42 Hypomagnesemia J30.9 Allergic rhinitis, unspecified Office Visit 06/06/2016 8:15a Main Office Qamar Turcios MD E87.6 Hypokalemia E83.42 Hypomagnesemia J30.9 Allergic rhinitis, unspecified J01.90 Acute sinusitis, unspecified Office Visit 04/02/2016 12:15p Main Office Qamar Turcios MD R10.9 Unspecified abdominal pain E87.6 Hypokalemia E83.42 Hypomagnesemia Office Visit 11/29/2015 8:15a Main Office Qamar Turcios MD J30.9 Allergic rhinitis, unspecified E87.6 Hypokalemia Z00.01 Encounter for general adult medical exam w abnormal findings Office Visit 09/06/2015 9:00a Main Office Qamar Turcios MD R10.9 Unspecified abdominal pain Office Visit 05/20/2015 10:15a Main Office Qamar Turcios MD L50.3 Dermatographic urticaria R94.5 Abnormal results of liver function studies Office Visit 11/10/2014 7:00p Main Office Qamar Turcios MD 462 Pharyngitis Acute 477.9 Rhinitis Allergic Cause Unspec V72.2 Examination Dental V72.0 Examination Eyes & Vision V70.0 Examination General Medical Routine AT [facility] 593.9 Kidney & Ureter Disorders Unspec GENERAL General Office Visit 10/05/2014 1:30p Main Office Qamar Turcios MD 477.9 Rhinitis Allergic Cause Unspec 794.8 Liver Study Abnormal 388.30 Tinnitus Unspecified GENERAL General Plan of Treatment Future Appointment(s):07/17/2018 8:15 am - Nurse at Main Hohstj9107/23/2018 10: 15 am - Qamar Turcios MD at Main Eikvyc0406/12/2018 - Qamar Turcios MDH66.91 Otitis media, unspecified, right earM54.31 Sciatica, right sideE87.6 HypokalemiaAllNew Medication:Azithromycin 250 mg - 2 by mouth today, 1 by mouth day 2 thru 5New Therapy:Evaluate And TreatComments:for above dx:-REFER PT RIGHT FOOT TINGLING, SCIATICA?-ZPAC ORDERED-RTO SCHEDULED [facility] HAVE GIVEN HER A SCRIPT FOR LABS TO BE DRAWN BY [facility] NEXT WEEK TO COVER THAT HER REQUEST
--- OUTSIDE RECORDS SUMMARY | 2018-06-13 14:07 | XMS REPORT | Continuity of Care Document ---
:1975 External Reference #:[id number] Author Name Qamar Turcios MD Address [address] [place] [address] Care Team Providers Name Role Phone Qamar Turcios MD Care Team Information [employer] Unavailable Payers Type Date Identification Numbers Payment Provider Subscriber Policy Number: [id number] [place] Plan Claims Shira Rankin PayID: [id number] [place] [address] Advance Directives Description No Information Available Problems [...] Active Tablets 250mg 6tabs 2 by mouth Eljody 2018 today, 1 by MD Tam mouth day 2 thru 5 Potassium 07/18/ Active Tablets ER 10Meq 180ta tab 1 by Elyn Chloride ER 2015 bs mouth twice MD Tam a day Magnesium / Active Capsules 780 1 by mouth Unknown 0000 twice a day Amoxicillin 04/15/ Hx Tablets 500mg 30tab 1 by mouth Qamar 2018 - s three times MD Tam 06/02/ a day 2018 Monistat 7 11/27/ Hx Cream 2% 15gm apply Eljody Simply Cure 2017 - vaginally MD Tam 03/31/ as directed 2017 Azithromycin 09/03/ Hx Tablets 500mg 6tabs Tab 1 PO Q Qamar 2017 - Day MD Tam 2017 Azithromycin 08/28/ Hx Tablets 500mg 1tabs Take one Yrn FRicci 2017 - pill today MD Jill 09/03/ and then 2017 complete course of treatment with 250mg pills already prescribed one a day starting Azithromycin 08/27/ Hx Tablets 250mg 6tabs 2 by mouth J01.90 Yrn F. 2017 - today, 1 by MD Jill 09/03/ mouth day 2 2017 thru 5 Amoxicillin 08/23/ Hx Capsules 500mg 30cap 1 by mouth Qamar 2017 - s three times MD Tam 08/28/ a day x 10 2017 days Silvadene 01/11/ Hx Cream 1% 20gm apply to Umeshyn 2016 - affected MD Tam 03/06/ area(s) [...] m daily prn MD Jill 03/06/ mcg/Act 2016 Zithromax Z-Ke 06/06/ Hx Tablets 250mg 6tabs take as Umeshyn 2015 - directed MD Tam 2015 Triamcinolone 11/28/ Hx Cream 0.025% 15gm Apply tid Elyn Acetonide 2015 - prn MD Tma 10/18/ Affected 2017 Areas Hydrocortisone 11/28/ Hx Cream 1% 15gm Apply tid Elyn Acetate 2015 - prn Rash MD Tam 2016 Amoxicillin 11/10/ Hx Capsules 500mg 30cap 1 by mouth Qamar 2014 - s three times MD Tam 05/20/ a day x 10 2014 days No Active 02/24/ Hx Elyn Medications 2014 - MD Tam 2014 Zyrtec Allergy / Hx Capsules 10mg 30cap 1 by mouth Elyn 0000 - s every day MD Tam 03/06/ as needed 2016 Magnesium / Hx Tablets 250mg 1 by [...] mmHg Heart Rate 92 /min Body Temperature 321620.0 F Respiratory Rate 80 /min 08/23/2017 2:35pm [...] Test Result H/L Range Note CBS 04/11/2018 [facility] White Blood 6.2 K/uL 3.1 -10.7 W/Automated [address] Count Diff [place], [place] [id number] [phone] Red Blood Count 5.13 M/uL 3.90-5.40 Hemoglobin [...] % 40.4-72.8 Lymph % 33.4 % 20.0-42.0 [place] % 6.8 % 4.3-13.2 Eo% 1.1 % 0.0-6.6 Bas% 0.3 % 0.0-1.1 Neut# 3.60 K/uL 1.8-7.0 Lymph # 2.06 K/uL 1.0-4.0 [place] # 0.42 K/uL 0.3-0.9 Eos # 0.07 K/uL 0.0-0.5 Baso # 0.02 K/uL 0.0-0.1 Laboratory test finding 04/11/2018 [facility] Slide Review . [address] [place], [place] [id number] [phone] Sedimentation Rate 18 mm/hr 0-20 2 Laboratory 04/11/2018 [facility] Anti-Nuclear Negative Negative 3, 4 test finding [address] Antibodies AU/[place] [address] Direct [phone] Liver Function 04/11/2018 [facility] Total Protein 7.9 g/dL 6.4-8.[address] [place] [address] [phone] Albumin 3.8 g/dL 3.4-5.0 Globulin 4.1 g/dL 1.9-4.3 Alb/Glob 0.9 ratio Bilirubin,Total 0.5 mg/dL 0.2-1.0 Bilirubin,Direct < 0.1 mg/dL 0.0-0.2 Bilirubin,Indirect 0.4 mg/dL 0.0-0.9 Sgot/Ast 22 U/L 15-37 SGPT/Alt 36 U/L 12-78 Alkaline Phosphatase 89 U/L 45-117 Comprehensive 04/11/2018 [facility] Glucose 103 mg/ dL 74-106 Metabolic Panel [address] [place] [address] [phone] BUN 15 mg/dL 7-18 Creatinine 0.9 mg/dL 0.6-1.3 Glom Filtration Rate, Estimate >60 mL/min >60 If >60 mL/min >60 5 BUN/Creat 16.6 ratio Sodium 139 mmol/L 136-145 Potassium 4.0 mmol/L 3.5-5.1 Chloride 103 mmol/L 98-107 Carbon Dioxide 27 mmol/L 21-32 Anion Gap 9 mEq/L 8-16 Calcium 9.2 mg/dL 8.5-10.1 Laboratory test 04/11/2018 [facility] Magnesium 2.1 mg/dL 1.8-2.[address] [place] [address] [phone] LDL Cholesterol 04/11/2018 [facility] Cholesterol 183 mg/dL <200 [address] [place] [address] [phone] Triglycerides 141 mg/dL <150 7 HDL Cholesterol 39 mg/dL Low >40 8 LDL-Cholesterol 116 mg/dL < 100 9 Glycohemoglobin 04/11/2018 [facility] Glycohemoglobin 5.9 % 4.2-6.3 10, A1c [address] (A1c) 11 [place] [address] [phone] eAG 123 mg/dL Comprehensive 11/21/2017 [facility] Glucose 106 mg/ dL 74-106 Metabolic Panel [address] [place], [place] [address] [phone] BUN 14 mg/dL 7-18 Creatinine 0.7 mg/dL [...] 88 U/L 45-117 Laboratory test finding 11/21/2017 [facility] FSH 94.6 mIU/mL [address] [place], [place] [address] [phone] Prolactin 14.0 ng/mL 14 Laboratory test 04/05/2017 [facility] Vitamin B12 661 pg/mL 193-986 [address] [place] [address] [phone] Rheumatoid Factor Screen < 10.0 IU/mL 0.0-15.0 Magnesium 2.1 mg/dL 1.8-2.4 Laboratory 04/05/2017 [facility] Anti-Nuclear Negative Negative 16 test finding [address] Antibodies AU/[place] [address] Direct [phone] Laboratory 04/05/2017 [facility] Cortisol,Am 13.2 g /dL 6.2-19.4 17 test finding [address] [place], [place] [address] [phone] CBC W/ Diff & 04/05/2017 [facility] White Blood 6.4 K /uL 3.1-10.[address] Count [place], [place] [address] [phone] Red Blood Count 5.29 M/uL 3.90-5.40 Hemoglobin [...] % 40.4-72.8 Lymph % 35.0 % 20.0-42.0 [place] % 6.3 % 4.3-13.2 Eo% 0.8 % 0.0-6.6 Bas% 0.3 % 0.0-1.1 Neut# 3.69 K/uL 1.8-7.0 Lymph # 2.24 K/uL 1.0-4.0 [place] # 0.40 K/uL 0.3-0.9 Eos # 0.05 K/uL 0.0-0.5 Baso # 0.02 K/uL 0.0-0.1 Laboratory test 04/05/2017 [facility] Sedimentation Rate 1 mm/hr 0-20 [address] [place] [address] [phone] Basic Metabolic 04/05/2017 [facility] Glucose 98 mg/ dL 74-[address] [place], [place] [id number] [phone] BUN 15 mg/dL 7-18 Creatinine 0.7 mg/dL 0.6-1.3 Glom Filtration Rate, Estimate >60 mL/min >60 If >60 mL/min >60 19 BUN/Creat 21.4 ratio Sodium 138 mmol/L 136-145 Potassium 3.7 mmol/L 3.5-5.1 Chloride 104 mmol/L 98-107 Carbon Dioxide 25 mmol/L 21-32 Anion Gap 9 mEq/L 8-16 Calcium 9.2 mg/dL 8.5-10.1 LDL Cholesterol 04/05/2017 [facility] Cholesterol 222 mg/dL High <200 [address] [place] [address] [phone] Triglycerides 175 mg/dL High <150 21 HDL Cholesterol 44 mg/dL >40 22 LDL-Cholesterol 143 mg/dL < 100 23 TSH+Free T4 04/05/2017 [facility] Thyroid Stim 0.85 uIU/mL 0.30-4.20 ([place] & [address] Hormone [facility] [place] [place] [address] [phone] Free T4 0.99 ng/dL 0.76-1.46 Liver Function 04/05/2017 [facility] Total Protein 8.0 g/dL 6.4-8.[address] [place] [address] [phone] Albumin 3.8 g/dL 3.4-5.0 Globulin 4.2 g/dL 1.9-4.3 Alb/Glob 0.9 ratio Bilirubin,Total 0.5 mg/dL 0.2-1.0 Bilirubin,Direct 0.1 mg/dL 0.0-0.2 Bilirubin,Indirect 0.4 mg/dL 0.0-0.9 Sgot/Ast 45 U/L High 15-37 SGPT/Alt 92 U/L High 12-78 Alkaline Phosphatase 96 U/L 45-117 Basic Metabolic 10/11/2016 [facility] Glucose 95 mg/ dL 74-106 [address] [place] [address] [phone] BUN 15 mg/dL 7-18 Creatinine 0.7 mg/dL 0.6-1.3 Glom Filtration Rate, Estimate >60 mL/min >60 If >60 mL/min >60 25 BUN/Creat 21.4 ratio Sodium 140 mmol/L 136-145 Potassium 3.9 mmol/L 3.5-5.1 Chloride 105 mmol/L 98-107 Carbon Dioxide 24 mmol/L 21-32 Anion Gap 11 mEq/L 8-16 Calcium 9.0 mg/dL 8.5-10.1 Laboratory test 10/11/2016 [facility] Magnesium 2.1 mg/dL 1.8-2.[address] [place], [place] [id number] [phone] Basic Metabolic 07/03/2016 [facility] Glucose 99 mg/ dL 74-106 [address] [place] [address] [phone] BUN 18 mg/dL 7-18 Creatinine 0.9 mg/dL 0.6-1.3 Glom Filtration Rate, Estimate >60 mL/min >60 If >60 mL/min >60 27 BUN/Creat 20.0 ratio Sodium 139 mmol/L 136-145 Potassium 3.5 mmol/L 3.5-5.1 Chloride 104 mmol/L 98-107 Carbon Dioxide 28 mmol/L 21-32 Anion Gap 7 mEq/L Low 8-16 Calcium 8.7 mg/dL 8.5-10.1 Laboratory test 07/03/2016 [facility] Magnesium 2.1 mg/dL 1.8-2.[address] [place] [address] [phone] CBS W/Automated 07/03/2016 [facility] White Blood 5.8 K/uL 3.1-10.[address] [place] [address] [phone] Red Blood Count 5.01 M/uL 3.90-5.40 Hemoglobin [...] % 40.4-72.8 Lymph % 35.8 % 17.0-46.1 [place] % 8.5 % 4.3-13.2 Eo% 1.4 % 0.0-6.6 Bas% 0.3 % 0.0-1.1 Neut# 3.12 K/uL 1.8-7.0 Lymph # 2.07 K/uL 1.8-7.0 [place] # 0.49 K/uL 0.3-0.9 Eos # 0.08 K/uL 0.0-0.5 Baso # 0.02 K/uL 0.0-0.1 Comprehensive Metabolic 07/03/2016 [facility] Glucose 93 mg/dL 74-[address] [place] [address] [phone] BUN 18 mg/dL 7-18 Creatinine 0.9 mg/dL [...] Phosphatase 84 U/L 45-117 LDL Cholesterol 07/03/2016 [facility] Cholesterol 197 mg/dL <200 [address] [place] [address] [phone] Triglycerides 72 mg/dL <150 30 HDL Cholesterol 51 mg/dL >40 31 LDL-Cholesterol 132 mg/dL < 100 32 Laboratory test 07/03/2016 [facility] Thyroid Stim 0.84 uIU/mL 0.30-4.[address] [place] [address] [phone] Free T4 1.15 ng/dL 0.76-1.46 Laboratory test 07/03/2016 [facility] Vitamin 40.0 30.0-100.0 [address] D,25-Hydroxy ng/[place] [address] [phone] Basic Metabolic 03/16/2016 [facility] Glucose 95 mg/ dL 74-[address] [place] [address] [phone] BUN 11 mg/dL 7-18 Creatinine 0.9 mg/dL 0.6-1.3 Glom Filtration Rate, Estimate >60 mL/min >60 If >60 mL/min >60 34 BUN/Creat 12.2 ratio Sodium 139 mmol/L 136-145 Potassium 3.7 mmol/L 3.5-5.1 Chloride 107 mmol/L 98-107 Carbon Dioxide 25 mmol/L 21-32 Anion Gap 7 mEq/L Low 8-16 Calcium 8.8 mg/dL 8.5-10.1 Laboratory test 03/16/2016 [facility] Magnesium 1.9 mg/dL 1.8-2.4 [address] [place] [address] [phone] Comprehensive 11/21/2015 [facility] Glucose 93 mg/dL 74-106 Metabolic Panel [address] [place] [address] [phone] BUN 15 mg/dL 7-18 Creatinine 0.8 mg/dL [...] Phosphatase 77 U/L 45-117 CBC W/Automated 11/21/2015 [facility] White Blood 5.4 K/uL 3.1-10.[address] [place] [address] [phone] Red Blood Count 4.71 M/uL 3.90-5.40 Hemoglobin [...] % 40.4-72.8 Lymph % 36.6 % 17.0-46.1 [place] % 6.9 % 4.3-13.2 Eo% 0.9 % 0.0-6.6 Bas% 0.4 % 0.0-1.1 Neut# 2.97 K/uL 1.8-7.0 Lymph # 1.97 K/uL 1.8-7.0 [place] # 0.37 K/uL 0.3-0.9 Eos # 0.05 K/uL 0.0-0.5 Baso # 0.02 K/uL 0.0-0.1 LDL Cholesterol 11/21/2015 [facility] Cholesterol 184 mg/dL <200 [address] [place] [address] [phone] Triglycerides 86 mg/dL <150 38 HDL Cholesterol 47 mg/dL >40 39 LDL-Cholesterol 120 mg/dL < 100 40 Laboratory test 11/21/2015 [facility] Vitamin 35.2 30.0-100.0 [address] D,25-Hydroxy ng/[place] [address] [phone] Laboratory test 11/21/2015 [facility] Thyroid Stim 0.78 0.36-3.[address] Hormone uIU/[place] [address] [phone] Free T4 1.00 ng/dL 0.76-1.46 Laboratory test 04/25/2015 [facility] Urine Screen See Note [address] [place] [address] [phone] Urinalysis With 04/25/2015 [facility] Urine Color YELLOW Yellow Microscopic [address] [place] [address] [phone] Urine Clarity CLEAR Clear Urine Glucose - Dipstick NEGATIVE mg/dL Negative Urine Bilirubin - Dipstick NEGATIVE Negative Urine Ketone NEGATIVE mg/dL Negative Urine Specific [place] 1.010 1.010-1.030 Urine Blood LARGE High Negative Urine PH 7.0 6.5-7.5 Urine Protein - Dipstick TRACE mg/dL Negative Urine Urobilinogen - Dipstick 0.2 E.U./dL 0.2-1.0 Urine Nitrite - Dipstick NEGATIVE Negative Urine Leuk Esterase SMALL High Negative Urine RBC 30-50 rbc/hpf High 0-2 Urine WBC 10-20 wbc/hpf High 0-7 Urine Epithelial Cells VERY FEW NONESEEN/lpf Urine Bacteria FEW NONESEEN Laboratory test 04/25/2015 [facility] Urine HCG NEGATIVE Negative [address] (Qualitative) [place] [address] [phone] Culture If Indicated Comment See Note 44 Urine Culture See Note 45 CMP W/O Egfr 10/15/2014 [facility] Sodium 136 mmol/L [phone] [place] [address] [phone] Potassium 3.9 mmol/L 3.5-5.0 Chloride 102 mmol/L [...] >60 46 CBC W/ Diff & 10/15/2014 [facility] White Blood 5.6 10^3/uL 4.8-10.[address] [place] [address] [phone] Red Blood Count 4.78 10^6/uL 4.0-5.4 Hemoglobin [...] Blood Cells % 0.1 Lipid Panel 10/15/2014 [facility] Triglycerides 130 mg/dL [address] [place] [address] [phone] Cholesterol 157 mg/dL 49 HDL Cholesterol 32.9 mg/dL 50 LDL Cholesterol 98 mg/dL 51 Hepatic 10/15/2014 [facility] Direct 0.10 mg/dL 0.03-0.18 Function Panel [address] [place] [address] [phone] Indirect Bilirubin 0.5 mg/dL 0.3-1.0 Laboratory test 10/15/2014 [facility] Creatine 39 U/L 10-[address] [place] [address] [phone] [employer] 10/15/2014 [employer] 25-Hydroxy <4.0 25-Hydroxy D [address] Vitamin D2 ng/mL (D2,D3) LC/[place] [address] [phone] 25-Hydroxy Vitamin D3 30 ng/mL 25-Hydroxy Vitamin D Total 30 ng/mL 52 Laboratory test 10/15/2014 [facility] TSH (Thyroid 0.79 0.34- 5.[address] Stimulating IU/[place] [address] Horm) [phone] Thyroxine Free 10/15/2014 [employer] [facility] T4 0.98 0.61-1.[address] ng/[place] [address] [phone] Laboratory test 10/15/2014 [employer] Vitamin B12 767 pg/mL 180-914 [address] [place] [address] [phone] 1 Instrument flagged sample for slide review. Less than 10% Bands seen, no other immature WBC's seen. RBC morphology essentially normal. Platelet estimate=NORMAL 2 Method: Sediplast Modified [place]estergren 3 E87.6 E78.5 R60.9 R53.83 4 Performed at: RN - [facility] [address] [id number] Home Child Care Provider: Sammie Carpenter MD, Phone: [phone] Note: Persistent reduction for 3 months [...] for more aggressive treatment of glycemia. The [place] Diabetes Association recommends that a primary goal [...] J20.9 R53.83 E87.6 E83.42 16 Performed at: [facility] [id number] Home Child Care Provider: Sammie Carpenter MD, Phone: [phone] Performed at: [facility] [id number] Home Child Care Provider: Sammie Carpenter MD, Phone: [phone] Method: Sediplast Modified Westergren 19 Note: [...] D deficiency has been defined by the [place] of [employer] and an Endocrine Society practice guideline as a level of serum 25-OH vitamin D less than 20 ng/mL (1,2). The Endocrine Society went on to further define vitamin D insufficiency as a level between 21 and 29 ng/mL (2). 1. IOM ([place] [employer]). 2010. Dietary reference intakes for calcium and D. [place]: The National Academies Press. 2. Jay MF, [place], Judith SANCHEZ, et al. Evaluation, treatment, and prevention of vitamin D deficiency: an Endocrine Society clinical practice guideline. JCEM. 2010; 96(7):1911-30. Performed at: RN - [facility] [address] [id number] Home Child Care Provider: Sammie Carpenter MD, Phone: [phone] Note: Persistent reduction for 3 months [...] found at www.kdoqi.org. 35 FAX TO LUBA KATJA AT [phone] Note: Persistent reduction for 3 months [...] D deficiency has been defined by the [place] [employer] and an Endocrine Society practice guideline as a level of serum 25-OH vitamin D less than 20 ng/mL (1,2). The Endocrine Society went on to further define vitamin D insufficiency as a level between 21 and 29 ng/mL (2). 1. IOM ([place] [employer]). 2010. Dietary reference intakes for calcium and D. [place]: The National Academies Press. 2. Jay MF, [place] SOLOMON, Judith SANCHEZ, et al. Evaluation, treatment, and prevention of vitamin D deficiency: an Endocrine Society clinical practice guideline. JCEM. 2010; 96(7):1911-30. Performed at: RN - [facility] [address] [id number] Home Child Care Provider: Sammie Carpenter MD, Phone: [phone] 04/25/15 LAB.EMM1 Deleted by [facility] 43 FIRST MORNING SPECIMENS GENERALLY CONTAIN THE [...] levels within this range. Test Performed by: [facility] [place] [address] Locks Inspector: Benji Song II, M.D., Ph.D. 53 Normal Range 180 to 914 Indeterminate Range 145 to 180 Deficient Range <145 Procedures Date Code Description Status 03/03/2018 08652 Duplex Scan Extremity Veins Complete Bilateral Completed 06/20/2017 67046 EKG-Tracing & Report Completed 08/12/2013 [id number] Mammogram Completed Encounters Type Date Location Provider Dx Diagnosis Office Visit 06/02/2018 Main Office Deonna Melchor M.D. M54.31 Sciatica, right side 3:30p S92.414A Nondisp fx of proximal phalanx of [...] Office Visit 08/27/2017 3:10p Main Office Yrn Melchor, J01.90 Acute sinusitis, MD unspecified Office Visit 08/23/2017 2:15p Main Office Qamar Turcios MD J02.9 Acute pharyngitis, unspecified H66.92 Otitis media, unspecified, left ear Office Visit 07/24/2017 1:15p Main Office Qamar Turcios MD E78.5 Hyperlipidemia, unspecified M54.5 Low [...] Appointment(s):07/17/2018 8:15 am - Nurse at Main Juhgmv6907/23/2018 10: 15 am - Qamar Turcios MD at Main Fyljoy3906/12/2018 - Qamar Turcios MDH66.91 Otitis media, unspecified, [...]
--- OUTSIDE RECORDS SUMMARY | 2018-06-13 14:08 | XMS REPORT | Continuity of Care Document ---
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 Type Date Identification Numbers Payment Provider Subscriber Policy Number: [id number] [place] Plan Claims Shira Rankin PayID: [id number] [address] [place] [address] Advance Directives Description No Information Available Problems [...] Form Strength Qnty SIG Indications Ordering Provider Potassium 07/18/ Active Tablets ER 10Meq 180ta tab 1 by Elyn Chloride ER 2015 bs mouth twice MD Tam a day Magnesium / Active Capsules 780 1 by mouth Unknown 0000 twice a day Amoxicillin 04/15/ Hx Tablets 500mg 30tab 1 by mouth Qamar 2017 - s three times MD Tam 06/02/ a day 2018 Monistat 7 11/27/ Hx Cream 2% 15gm apply Qamar Simply Cure 2017 - vaginally MD Tam 03/31/ as directed 2017 Azithromycin 09/03/ Hx Tablets 500mg 6tabs Tab 1 PO Q Umeshyn 2018 - Day MD Tam 2017 Azithromycin 08/28/ Hx Tablets 500mg 1tabs Take one Yrn F. 2018 - pill today MD Jill 09/03/ [...] 20gm apply to Elyn 2016 - affected RingMD 03/06/ area(s) 2016 once daily after cleaning Prednisone 11/05/ Hx Tablets 20mg 8tabs 2 by mouth J20.9 Yrn FRicci 2017 - every day MD Jill 2016 Azithromycin 11/05/ Hx Tablets 250mg 6tabs 2 by mouth J20.9 Qamar 2016 - today, 1 by MD Tam 03/06/ mouth day 2 2016 thru 5 Robitussin 11/05/ Hx Capsules 10-200mg 20cap 1 by mouth J20.9 Yrn F. Cough+Chest 2016 - s twice a day MD Jill Congestion DM 03/06/ as needed 2016 Proair HFA 11/05/ Hx Aerosol 108(90Bas 25.5g 2 puffs 4 x J20.9 Yrn F. 2016 - e) m daily prn MD Jill 03/06/ mcg/Act 2017 Zithromax Z-Ke 06/06/ Hx Tablets 250mg 6tabs take as Qamar 2016 - directed MD Tam 2015 Triamcinolone [...] days No Active 10/05/ Hx Elyn Medications 2015 - MD Tam 2014 Zyrtec Allergy / Hx Capsules 10mg 30cap 1 by mouth Qamar - s every day MD Tam 03/06/ as needed 2017 Magnesium / Hx Tablets 250mg 1 by mouth Unknown 0000 - twice a day 2017 Immunizations Description No Information Available Vital Signs Date Vital Result Comment 06/02/2018 3:32pm BP Systolic 120 mmHg BP [...] mmHg Heart Rate 92 /min Body Temperature 493436.0 F Respiratory Rate 80 /min 08/23/2017 2:35pm [...] -10.7 W/Automated [address] Count Diff [place], [place] [id number] [phone] Red Blood Count 5.13 M/uL 3.90-5.40 Hemoglobin [...] % 40.4-72.8 Lymph % 33.4 % 20.0-42.0 [place] % 6.8 % 4.3-13.2 Eo% 1.1 % 0.0-6.6 Bas% 0.3 % 0.0-1.1 Neut# 3.60 K/uL 1.8-7.0 Lymph # 2.06 K/uL 1.0-4.0 [place] # 0.42 K/uL 0.3-0.9 Eos # 0.07 K/uL 0.0-0.5 Baso # 0.02 K/uL 0.0-0.1 Laboratory test finding 04/11/2018 [facility] Slide Review . [address] [place] [address] [phone] Sedimentation Rate 18 mm/hr 0-20 2 Laboratory 04/11/2018 [facility] Anti-Nuclear Negative Negative 3, 4 test finding [address] Antibodies AU/[place] [address] Direct [phone] Liver Function 04/11/2018 [facility] Total Protein 7.9 g/dL 6.4-8.[address] [place] [address] [phone] Albumin 3.8 g/dL 3.4-5.0 Globulin 4.1 g/dL 1.9-4.3 Alb/Glob 0.9 ratio Bilirubin,Total 0.5 mg/dL 0.2-1.0 Bilirubin,Direct < 0.1 mg/dL 0.0-0.2 Bilirubin,Indirect 0.4 mg/dL 0.0-0.9 Sgot/Ast 22 U/L 15-37 SGPT/Alt 36 U/L 12-78 Alkaline Phosphatase 89 U/L 45-117 Comprehensive 04/11/2018 [facility] Glucose 103 mg/ dL 74-106 Metabolic Panel [address] [place], [place] [id number] [phone] BUN 15 mg/dL 7-18 Creatinine 0.9 mg/dL [...] 2.1 mg/dL 1.8-2.[address] [place], [place] [id number] [phone] LDL Cholesterol 04/11/2018 [facility] Cholesterol 183 mg/dL <200 [address] [place] [address] [phone] Triglycerides 141 mg/dL <150 7 HDL Cholesterol 39 mg/dL Low >40 8 LDL-Cholesterol 116 mg/dL < 100 9 Glycohemoglobin 04/11/2018 [facility] Glycohemoglobin 5.9 % 4.2-6.3 10, A1c [address] (A1c) 11 [place] [address] [phone] eAG 123 mg/dL Comprehensive 11/21/2017 [facility] Glucose 106 mg/ dL 74-106 Metabolic Panel [address] [place] [address] [phone] BUN 14 mg/dL 7-18 Creatinine 0.7 mg/dL [...] FSH 94.6 mIU/mL [address] [place] [address] [phone] Prolactin 14.0 ng/mL 14 Laboratory 04/05/2017 [facility] Anti-Nuclear Negative Negative 15, 16 test finding [address] Antibodies AU/[place] [address] Direct [phone] Laboratory 04/05/2017 [facility] Cortisol,Am 13.2 g /dL 6.2-19.4 17 test finding [address] [place] [address] [phone] CBC W/ Diff & 04/05/2017 [facility] White Blood 6.4 K /uL 3.1-10.[address] Count [place], [place] [address] [phone] Red Blood Count 5.29 M/uL 3.90-5.40 Hemoglobin [...] % 40.4-72.8 Lymph % 35.0 % 20.0-42.0 [place] % 6.3 % 4.3-13.2 Eo% 0.8 % 0.0-6.6 Bas% 0.3 % 0.0-1.1 Neut# 3.69 K/uL 1.8-7.0 Lymph # 2.24 K/uL 1.0-4.0 [place] # 0.40 K/uL 0.3-0.9 Eos # 0.05 K/uL 0.0-0.5 Baso # 0.02 K/uL 0.0-0.1 Laboratory test 04/05/2017 [facility] Sedimentation Rate 1 mm/hr 0-20 [address] [place] [address] [phone] Basic Metabolic 04/05/2017 [facility] Glucose 98 mg/ dL 74-[address] [place] [address] [phone] BUN 15 mg/dL 7-18 Creatinine 0.7 mg/dL [...] High <200 [address] [place] [address] [phone] Triglycerides 175 mg/dL High <150 21 HDL Cholesterol 44 mg/dL >40 22 LDL-Cholesterol 143 mg/dL < 100 23 Liver Function 04/05/2017 [facility] Total Protein 8.0 g/dL 6.4-8.[address] [place] [address] [phone] Albumin 3.8 g/dL 3.4-5.0 Globulin 4.2 g/dL 1.9-4.3 Alb/Glob 0.9 ratio Bilirubin,Total 0.5 mg/dL 0.2-1.0 Bilirubin,Direct 0.1 mg/dL 0.0-0.2 Bilirubin,Indirect 0.4 mg/dL 0.0-0.9 Sgot/Ast 45 U/L High 15-37 SGPT/Alt 92 U/L High 12-78 Alkaline Phosphatase 96 U/L 45-117 TSH+Free T4 04/05/2017 [facility] Thyroid Stim 0.85 uIU/mL 0.30-4.20 ([place] & [address] Hormone [facility] [place] [place] [address] [phone] Free T4 0.99 ng/dL 0.76-1.46 Laboratory test 04/05/2017 [facility] Vitamin B12 661 pg/mL 193-[address] [place] [address] [phone] Rheumatoid Factor Screen < 10.0 IU/mL 0.0-15.0 Magnesium 2.1 mg/dL 1.8-2.4 Basic Metabolic 10/11/2016 [facility] Glucose 95 mg/ dL 74-106 [address] [place] [address] [phone] BUN 15 mg/dL 7-18 Creatinine 0.7 mg/dL [...] 2.1 mg/dL 1.8-2.[address] [place] [address] [phone] Basic Metabolic 07/03/2016 [facility] Glucose 99 mg/ dL 74-106 [address] [place] [address] [phone] BUN 18 mg/dL 7-18 Creatinine 0.9 mg/dL [...] 2.1 mg/dL 1.8-2.[address] [place] [address] [phone] CBS W/Automated 07/03/2016 [facility] White Blood 5.8 K/uL 3.1-10.[address] [place] [address] [phone] Red Blood Count 5.01 M/uL 3.90-5.40 Hemoglobin [...] % 40.4-72.8 Lymph % 35.8 % 17.0-46.1 [place] % 8.5 % 4.3-13.2 Eo% 1.4 % 0.0-6.6 Bas% 0.3 % 0.0-1.1 Neut# 3.12 K/uL 1.8-7.0 Lymph # 2.07 K/uL 1.8-7.0 [place] # 0.49 K/uL 0.3-0.9 Eos # 0.08 K/uL 0.0-0.5 Baso # 0.02 K/uL 0.0-0.1 Comprehensive Metabolic 07/03/2016 [facility] Glucose 93 mg/dL 74-[address] [place] [address] [phone] BUN 18 mg/dL 7-18 Creatinine 0.9 mg/dL [...] mg/dL <200 [address] [place] [address] [phone] Triglycerides 72 mg/dL <150 30 HDL Cholesterol 51 mg/dL >40 31 LDL-Cholesterol 132 mg/dL < 100 32 Laboratory test 07/03/2016 [facility] Thyroid Stim 0.84 uIU/mL 0.30-4.[address] Hormone [place] [id number] [phone] Free T4 1.15 ng/dL 0.76-1.46 Laboratory test 07/03/2016 [facility] Vitamin 40.0 30.0-100.0 [address] D,25-Hydroxy ng/[place] [address] [phone] Basic Metabolic 03/16/2016 [facility] Glucose 95 mg/ dL 74-[address] [place] [address] [phone] BUN 11 mg/dL 7-18 Creatinine 0.9 mg/dL [...] mg/dL 1.8-2.4 [address] [place] [address] [phone] Comprehensive 11/21/2015 [facility] Glucose 93 mg/dL 74-106 Metabolic Panel [address] [place] [address] [phone] BUN 15 mg/dL 7-18 Creatinine 0.8 mg/dL [...] K/uL 3.1-10.[address] [place] [address] [phone] Red Blood Count 4.71 M/uL 3.90-5.40 Hemoglobin [...] % 40.4-72.8 Lymph % 36.6 % 17.0-46.1 [place] % 6.9 % 4.3-13.2 Eo% 0.9 % 0.0-6.6 Bas% 0.4 % 0.0-1.1 Neut# 2.97 K/uL 1.8-7.0 Lymph # 1.97 K/uL 1.8-7.0 [place] # 0.37 K/uL 0.3-0.9 Eos # 0.05 K/uL 0.0-0.5 Baso # 0.02 K/uL 0.0-0.1 LDL Cholesterol 11/21/2015 [facility] Cholesterol 184 mg/dL <200 [address] [place] [address] [phone] Triglycerides 86 mg/dL <150 38 HDL Cholesterol 47 mg/dL >40 39 LDL-Cholesterol 120 mg/dL < 100 40 Laboratory test 11/21/2015 [facility] Vitamin 35.2 30.0-100.0 [address] D,25-Hydroxy ng/[place] [address] [phone] Laboratory test 11/21/2015 [facility] Thyroid Stim 0.78 0.36-3.[address] Hormone uIU/[place] [address] [phone] Free T4 1.00 ng/dL 0.76-1.46 Laboratory test 04/25/2015 [facility] Urine Screen See Note [address] [place] [address] [phone] Urinalysis With 04/25/2015 [facility] Urine Color YELLOW Yellow Microscopic [address] [place] [address] [phone] Urine Clarity CLEAR Clear Urine Glucose - Dipstick NEGATIVE mg/dL Negative Urine Bilirubin - Dipstick NEGATIVE Negative Urine Ketone NEGATIVE mg/dL Negative Urine Specific [place] 1.010 1.010-1.030 Urine Blood LARGE High Negative [...] Negative [address] (Qualitative) [place] [address] [phone] Culture If Indicated Comment See Note 44 Urine Culture See Note 45 CMP W/O Egfr 10/15/2014 [facility] Sodium 136 mmol/L [phone] [place] [address] [phone] Potassium 3.9 mmol/L 3.5-5.0 Chloride 102 mmol/L [...] >60 46 CBC W/ Diff & 10/15/2014 [facility] White Blood 5.6 10^3/uL 4.8-10.[address] Count [place], [place] [address] [phone] Red Blood Count 4.78 10^6/uL 4.0-5.4 Hemoglobin [...] Blood Cells % 0.1 Lipid Panel 10/15/2014 [facility] Triglycerides 130 mg/dL [address] [place] [address] [phone] Cholesterol 157 mg/dL 49 HDL Cholesterol 32.9 mg/dL 50 LDL Cholesterol 98 mg/dL 51 Hepatic 10/15/2014 [facility] Direct 0.10 mg/dL 0.03-0.18 Function Panel [address] Bilirubin [place] [address] [phone] Indirect Bilirubin 0.5 mg/dL 0.3-1.0 Laboratory test 10/15/2014 [facility] Creatine Kinase 39 U/L 10-[address] [place] [address] [phone] Laboratory test 10/15/2014 [facility] TSH (Thyroid 0.79 0.34- 5.[address] Stimulating IU/[place] [address] Horm) [phone] Thyroxine Free 10/15/2014 [facility] Free T4 0.98 0.61-1.[address] ng/[place] [address] [phone] Laboratory test 10/15/2014 [facility] Vitamin B12 767 180-214 [address] pg/mL [place] [address] [phone] [facility] 10/15/2014 [place] [facility] 25-Hydroxy <4.0 25-Hydroxy D [address] Vitamin D2 ng/mL (D2,D3) LC/MS [place] [address] [phone] 25-Hydroxy Vitamin D3 30 ng/mL 25-Hydroxy Vitamin D Total 30 ng/mL 53 1 Instrument flagged sample for slide review. Less than 10% Bands seen, no other immature WBC's seen. RBC morphology essentially normal. Platelet estimate=NORMAL 2 Method: Sediplast Modified Westergren 3 E87.6 E78.5 R60.9 R53.83 4 Performed at: RN - [facility] [address] [id number] Taper And Floater: Sammie Carpenter MD, Phone: [phone] Note: Persistent reduction for 3 months [...] for more aggressive treatment of glycemia. The [place] Diabetes Association recommends that a primary goal [...] E83.42 16 Performed at: RN - [facility] [address] [id number] Taper And Floater: Sammie Carpenter MD, Phone: [phone] 17 Performed at: - [facility] [address] [id number] Taper And Floater: Sammie Carpenter MD, Phone: [phone] Method: Sediplast Modified Westergren 19 Note: [...] D deficiency has been defined by the [place] of [employer] and an Endocrine Society practice guideline as a level of serum 25-OH vitamin D less than 20 ng/mL (1,2). The Endocrine Society went on to further define vitamin D insufficiency as a level between 21 and 29 ng/mL (2). 1. IOM ([place] [employer]). 2010. Dietary reference intakes for calcium and D. [place]: The National Academies Press. 2. Jay MF, mAerica SOLOMON, Judith SANCHEZ, et al. Evaluation, treatment, and prevention of vitamin D deficiency: an Endocrine Society clinical practice guideline. JCEM. 2010; 96(7):1911-30. Performed at: RN - [facility] [address] [id number] Taper And Floater: Sammie Carpenter MD, Phone: [phone] Note: Persistent reduction for 3 months [...] www.kdoqi.org. 35 FAX TO LUBA HIGHTOWER AT [phone] 36 Note: Persistent reduction for 3 months [...] D deficiency has been defined by the [place] [employer] and an Endocrine Society practice guideline as a level of serum 25-OH vitamin D less than 20 ng/mL (1,2). The Endocrine Society went on to further define vitamin D insufficiency as a level between 21 and 29 ng/mL (2). 1. IOM ([place] [employer]). 2010. Dietary reference intakes for calcium and D. [place]: The National Academies Press. 2. Jay WILSON, [place] SOLOMON, Judith SANCHEZ, et al. Evaluation, treatment, and prevention of vitamin D deficiency: an Endocrine Society clinical practice guideline. JCEM. 2010; 96(7):1911-30. Performed at: RN - [facility] [id number] Taper And Floater: Sammie Carpenter MD, Phone: [phone] 42 04/25/15 LAB.[email or web address] Deleted by Reflex Group [facility] 43 FIRST MORNING SPECIMENS GENERALLY CONTAIN THE [...] 160-189 mg/dL Very High: >189 mg/dL 52 Normal Range 180 to 914 Indeterminate Range 145 to 180 Deficient Range <145 53 REFERENCE VALUE 25-HYDROXY D TOTAL (D2+D3) Optimum levels in the healthy population are 20-50, patients with bone disease may benefit from higher levels within this range. Test Performed by: [facility] [place] [address] Steam Distribution Supervisor: Benji Song II, M.D., Ph.D. Procedures Date Code Description Status 03/03/2018 95743 Duplex Scan Extremity Veins Complete Bilateral Completed 06/20/2017 30171 EKG-Tracing & Report Completed 08/12/2013 [id number] Mammogram Completed Encounters Type Date Location Provider Dx Diagnosis Office Visit 04/15/2018 4:00p Main Office Qamar [...] Main Office Yrn Melchor J01.90 Acute sinusitis, MD unspecified Office Visit [...] Office Visit 11/05/2016 10:50a Main Office Yrn Melhcor J20.9 Acute bronchitis, unspecified J45.998 Other asthma [...] Appointment(s):07/17/2018 8:15 am - Nurse at Main Dlxavr6707/23/2018 10: 15 am - Qamar Turcios MD at Main Office
[2018-06-13 14:22] VITALS: BP 140/88
--- NOTE | 2018-06-13 14:37 | UC ---
General HPI - HPI Summary HPI Summary: pt is c/o a "skin sensitivity" across her low back L greater than R. she also c/o a sense of not feeling well. last pm, she noted her L eye felt "pinchy". pt concerned that this is shingles. if shingles, wants a viral blood test before tx. no fever. - History of Current Complaint Chief Complaint: UCSkin Stated Complaint: SKIN CONCERN Time Seen by Provider: 06/13/18 14:21 Hx Obtained From: Patient Hx Last Menstrual Period: unknown Onset/Duration: Gradual Onset Timing: Constant Pain Intensity: 0 Aggravating: nothing Alleviating: nothing Associated Signs & Symptoms: Negative: Fever - Allergy/Home Medications Allergies/Adverse Reactions: Allergies Allergy/AdvReac Type Severity Reaction Status Date / Time nitrofurantoin Allergy Rash Verified 06/13/18 14:13 [From Macrobid] Home Medications: Home Medications C Vegatable 1 cap PO DAILY 06/13/18 [History] Magnesium Oxide [Magnesium] 787 mg PO DAILY 06/13/18 [History Confirmed 06/13/18 ] Potassium Chlor TAB* [Klor Con ER TAB*] 10 meq PO DAILY 06/13/18 [History Confirmed 06/13/18] PMH/Surg Hx/FS Hx/Imm Hx - Additional Past Medical History Additional PMH: hypokalemia, - Surgical History Surgical History: Yes Surgery Procedure, Year, and Place: , 2009, [facility] [place] - Family History Known Family History: Positive: Cardiac Disease, Diabetes - Social History Occupation: Employed Full-time Alcohol Use: None Substance Use Type: None Smoking Status (MU): Never Smoked Tobacco - Immunization History Vaccination Up to Date: Yes Review of Systems Constitutional: Negative Skin: Negative Eyes: Negative ENT: Negative Respiratory: Negative Cardiovascular: Negative Gastrointestinal: Negative Genitourinary: Negative Motor: Negative Neurovascular: Negative Musculoskeletal: Negative Neurological: Negative Psychological: Negative Is Patient Immunocompromised?: No All Other Systems Reviewed And Are Negative: Yes Physical Exam Triage Information Reviewed: Yes Appearance: Well-Appearing Vital Signs: Initial Vital Signs Temp 98.3 F 06/13/18 14:15 Pulse 90 06/13/18 14:15 Resp 14 06/13/18 14:15 BP 140/88 06/13/18 14:15 Pulse Ox 98 06/13/18 14:15 Vital Signs Reviewed: Yes Eyes: Positive: Conjunctiva Clear, Other: - PERRL, EOMI. Lids everted and no FB on L ENT: Positive: Pharynx normal, TMs normal, Other - No auricular adenopathy.. Negative: Nasal congestion, Nasal drainage Neck: Positive: Supple, Nontender, No Lymphadenopathy Respiratory: Positive: Lungs clear, Normal breath sounds Cardiovascular: Positive: RRR, No Murmur Abdomen Description: Positive: Nontender, No Organomegaly, Soft Bowel Sounds: Positive: Present Musculoskeletal: Positive: ROM Intact, No Edema, Other: - spine is non tender. Neurological: Positive: Alert Psychological: Positive: Age Appropriate Behavior Skin Exam: Normal, Other - few scattered pimples on back and upper chest. Skin: Negative: rashes Course/Dx - Course Course Of Treatment: the symptoms and pattern is not c/w shingle. symptoms do not follow a dermatomal pattern, plus they cross midline. it does not sound radicular. will observe and have pt f/u pcp. - Differential Dx - Multi-Symptom Provider Diagnoses: skin sensitivity Discharge - Sign-Out/Discharge Documenting (check all that apply): Patient Departure All imaging exams completed and their final reports reviewed: No Studies - Discharge Plan Condition: Stable Disposition: HOME Patient Education Materials: Viral Syndrome (ED) Referrals: Qamar Turcios MD [Primary Care Provider] - 7 Days - Billing Disposition and Condition Condition: STABLE Disposition: Home
== END 2018-06-13 14:57 | disposition home or self-care (01) ==
LOC: UCCORT 11:52
DX: R20.3 Hyperesthesia (principal)
CPT/HCPCS: 99211; G0463

== ENCOUNTER 2019-03-23 19:58 | Emergency (ER) | payer BC, OTHER ==
[2019-03-23] MEDS ORDERED: Fluorescein Sodium TOPICAL* 1 MG TEST STRIP OPHTHALMIC ONE (20:09)
[2019-03-23 20:10] VITALS: BP 147/87
[2019-03-23] MEDS ORDERED: Tetracaine 0.5% OPTH.SOL 4 ML* 1 DROP BTL ONE (20:10)
--- NOTE | 2019-03-23 20:15 | UC ---
Eye Complaint HPI - HPI Summary HPI Summary: per triage, 20min ago pt states that a corn chip flew in her right eye. Pt is holding the eye lid away from the eye. - History of Current Complaint Chief Complaint: UCEye Stated Complaint: RT EYE COMPLAINT Time Seen by Provider: 03/23/19 20:09 Hx Obtained From: Patient Hx Last Menstrual Period: unknown Onset/Duration: Sudden Onset Timing: Constant Pain Intensity: 9 Aggravating Factor(s): Blinking Alleviating Factor(s): Nothing Associated Signs And Symptoms: Negative: Photophobia, Drainage (Purulent) - Risk Factors Penetrating Injury Risk Factor: Negative Globe Rupture Risk Factors: Negative Acute Glaucoma Risk Factors: Negative - Allergies/Home Medications Allergies/Adverse Reactions: Allergies Allergy/AdvReac Type Severity Reaction Status Date / Time nitrofurantoin Allergy Rash Verified 03/23/19 20:11 [From Macrobid] PMH/Surg Hx/FS Hx/Imm Hx - Additional Past Medical History Additional PMH: HYPOKALEMIA - Surgical History Surgical History: Yes Surgery Procedure, Year, and Place: , 2009, [facility] [place] - Family History Known Family History: Positive: Cardiac Disease, Diabetes - Social History Alcohol Use: None Substance Use Type: None Smoking Status (MU): Never Smoked Tobacco - Immunization History Vaccination Up to Date: Yes Review of Systems All Other Systems Reviewed And Are Negative: No Constitutional: Negative: Fever Skin: Negative: Rash Eyes: Positive: Drainage - tearing OD, Eye Redness - R. Negative: Diplopia, Photophobia Physical Exam Triage Information Reviewed: Yes Appearance: Well-Appearing Vital Signs: Initial Vital Signs Temp 98.7 F 03/23/19 20:07 Pulse 96 03/23/19 20:07 Resp 18 03/23/19 20:07 BP 147/87 03/23/19 20:07 Pulse Ox 100 03/23/19 20:07 Vital Signs Reviewed: Yes Eyes: Positive: Other: - Pt holding R upper lid away from eye. No periorbital edema or rash. OD injected and OS is clear. OD is tearing. PERRL, EOMI. Lids on R everted and FB under upper lid. FB swept away with Qtip moistened with tetracaine. AC's clear. R Eye stained and abrasion noted to inferior cornea but no perforations. ENT: Negative: Nasal drainage Neck: Positive: Supple Neurological: Positive: Alert Psychological: Positive: Normal Response To Family, Age Appropriate Behavior Skin Exam: Normal Skin: Negative: Rashes Eye Complaint Course/Dx - Differential Dx/Diagnosis Differential Diagnosis/HQI/PQRI: Other - FB removed and abrasion noted. Provider Diagnosis: Corneal abrasion, Acute foreign body of eyelid Discharge - Sign-Out/Discharge Documenting (check all that apply): Patient Departure All imaging exams completed and their final reports reviewed: No Studies - Discharge Plan Condition: Stable Disposition: HOME Prescriptions: Erythromycin OPTH OINT* [Erythromycin 0.5% OPTH OINT*] 1 applic RIGHT EYE TID 7 Days #1 ophth.oint Patient Education Materials: Corneal Abrasion (ED), Eye Foreign Body (ED) Referrals: Keena Connors MD [Medical Doctor] - 7 Days Additional Instructions: FOLLOW UP SOONER FOR ANY WORSENING. - Billing Disposition and Condition Condition: STABLE Disposition: Home
[2019-03-23] MEDS ORDERED: Erythromycin OPTH OINT* APPLIC OINT RIGHT EYE ONE (20:25)
== END 2019-03-23 20:36 | disposition home or self-care (01) ==
LOC: UCCORT 19:58
DX: S00.251A Superficial foreign body of right eyelid and periocular area, initial encounter (principal); H02.811 Retained foreign body in right upper eyelid; X58.XXXA Exposure to other specified factors, initial encounter; Y92.9 Unspecified place or not applicable
CPT/HCPCS: 99212; A9270-GY; G0463